=== PATIENT | female | born 1985 | race Caucasian/White ===

== ENCOUNTER 2021-11-25 06:10 | Emergency (ER) | payer MEDICAID, OTHER ==
--- NOTE | 2021-11-25 07:30 | ED Physician Documentation ---
PD HPI HEENT - Stated complaint Stated Complaint: RT EYE PX - Chief complaint Chief Complaint: Heent - History obtained from History obtained from: Patient - History of Present Illness Timing - onset: How many weeks ago (5) Timing - duration: Weeks (5) Timing - details: Gradual onset, Still present, Waxing and waning Location: Right ear, Sinuses Improves: Medication Worsens: Swalllowing Associated symptoms: Congestion, Rhinorrhea, Swollen nodes, Facial swelling, Headache, Cough Similar symptoms before: Diagnosis (sinusitis) Recently seen: Not recently seen - Additional information Additional information: Previously well 36-year-old female with a history of sinus infections has developed sinus congestion and cough about 5 weeks ago. She was sick for sev eral weeks with on and off cough and she tested multiple times for COVID with negative results. She is immunized. She has now developed a second set of symptoms beginning about 5 days ago with nasal congestion swelling to her face a headache drainage from her right eye and when she rinsed her nose yesterday drainage came out of her right eye. She has not had fever. She does have a history of asthma she is not having significant wheezing. Review of Systems Constitutional: denies: Fever Eyes: reports: Discharge, Irritation. 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, Tubal ligation - Present Medications Home Medications: Ambulatory Orders Medication Instructions Recorded Confirmed Albuterol Sulf [Ventolin Hfa 1 - 2 puffs INH Q4HR PRN #1 inhaler 11/25/21 Inhaler] Amox/Clav 875/125 [Augmentin] 1 each PO Q12H #20 tablet 11/25/21 predniSONE [Deltasone] 40 mg PO DAILY 5 Days #10 tablet 11/25/21 - Allergies Allergies/Adverse Reactions: Allergies Allergy/AdvReac Type Severity Reaction Status Date / Time acetaminophen [From Vicodin] AdvReac Emesis Verified 11/25/21 06:23 hydrocodone bitartrate * AdvReac Emesis Verified 11/25/21 06:23 [From Vicodin] - Social History Does the pt smoke?: No Smoking Status: Never smoker Does the pt drink ETOH?: Yes ETOH Use: Wine Does the pt have substance abuse?: No - Immunizations Immunizations are current?: Yes - POLST Patient has POLST: No PD ED PE NORMAL - Vitals Vital signs reviewed: Yes - General General: Alert and oriented X 3, Well developed/nourished, Other (36-year-old female with a swollen right face and nearly closed right eye appears miserable) - HEENT HEENT: Atraumatic, PERRL, EOMI, Pharynx benign, Other (Both TMs are erythematous with distortion of landmarks the right is worse than the left there is sinus point tenderness to the right maxillary sinus but is exquisite and less so on the left) - Neck Neck: Supple, no meningeal sign, No bony TTP - Cardiac Cardiac: RRR, No murmur - Respiratory Respiratory: No respiratory distress, Clear bilaterally - Abdomen Abdomen: Soft, Non tender - Back Back: No CVA TTP, No spinal TTP - Derm Derm: Normal color, Warm and dry, No rash - Extremities Extremities: No deformity, No edema - Neuro Neuro: Alert and oriented X 3, 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, No motor deficit, No sensory deficit, Normal speech Eye Opening: Spontaneous Motor: Obeys Commands Verbal: Oriented GCS Score: 15 - Psych Psych: Normal mood, Normal affect Results - Vitals Vitals: Vital Signs - 24 hr 11/25/21 11/25/21 06:18 07:56 Temperature 36.9 C 37.4 C Heart Rate 101 H 91 Respiratory 20 17 Rate Blood Pressure 137/80 H 140/94 H O2 Saturation 100 100 Oxygen O2 Source Room air PD MEDICAL DECISION MAKING - ED course Complexity details: reviewed old records, considered differential, d/w patient ED course: 36-year-old female with right maxillary sinusitis and otitis bilaterally as tested negative for COVID at home. She is treated here in the emergency department with dexamethasone Rocephin and Toradol we will place her a course of Augmentin and prednisone she has a physician for follow-up in [facility] Departure - Departure Disposition: 01 Home, Self Care Clinical Impression: Sinusitis Qualifiers: Sinusitis location: maxillary Chronicity: acute Recurrence: not specified as recurrent Qualified Code(s): J01.00 - Acute maxillary sinusitis, unspecified Otitis media Qualifiers: Otitis media type: suppurative Chronicity: acute Laterality: bilateral Recurrence: not specified as recurrent Spontaneous tympanic membrane rupture: without spontaneous rupture Qualified Code(s): H66.003 - Acute suppurative otitis media without spontaneous rupture of ear drum, bilateral Condition: Stable Instructions: ED Otitis Media Acute Adult, ED Sinusitis Abx Tx Follow-Up: SEBASTIEN NEFF MD [Physician No Access] - Prescriptions: Albuterol Sulf [Ventolin Hfa Inhaler] 1 - 2 puffs INH Q4HR PRN #1 inhaler PRN Reason: Shortness Of Air/Wheezing Amox/Clav 875/125 [Augmentin] 1 each PO Q12H #20 tablet predniSONE [Deltasone] 40 mg PO DAILY 5 Days #10 tablet Comments: Ryan, today it looks like you have a sinus infection in the right maxillary sinus and in both of your ears. The expectation is steady improvement over the next several days. Drainage is important in the resolution of this infection. Use a decongestant such as Sudafed on a regular basis during antibiotic treatment. The medications we gave you today in the emergency department were Rocephin the antibiotic, dexamethasone the steroid, and Toradol and anti- inflammatory for pain relief. A prescription for Augmentin and prednisone has been E scribed to [facility] in [place]
[2021-11-25] MEDS: cefTRIAXone 1 GM VIAL IM STA (07:49)
[2021-11-25] MEDS: LIDOCAINE 1% 2 ML VIAL MC ONE (07:51)
[2021-11-25] MEDS: KETOROLAC 60 MG/2 ML VIAL IM STA (07:52)
[2021-11-25] MEDS: CHERRY SYRUP 10 ML UDC PO ONE (07:54)
[2021-11-25] MEDS: DEXAMETHASONE 10 MG/ML VIAL PO STA (07:54)
[2021-11-25 08:00] VITALS: BP 140/94
== END 2021-11-25 08:15 | disposition home or self-care (01) ==
LOC: ED 06:10
DX: J01.00 Acute maxillary sinusitis, unspecified (principal); H66.003 Acute suppurative otitis media without spontaneous rupture of ear drum, bilateral
CPT/HCPCS: 96372; 99282; 99283; A9270